=== PATIENT | female | born 1990 | race Caucasian/White ===

== ENCOUNTER 2019-01-30 14:46 | Emergency (ER) | payer OTHER, MEDICAID, SELFPAY ==
[2019-01-30 14:49] VITALS: BP 130/81; PULSE 99; RESP 20; TEMP 37; O2SAT 100; BMI 31.7
--- NOTE | 2019-01-30 15:43 | PC.NURSE ---
Pt reports hitting head on 2x4. was initially seen at [facility]. Reports pain and dizziness has been increasingly getting worse. Reports pain is left side of head and neck. states can feel behind left eye. reports only medication she has been taking is clonazepam and meclizine. states did not take clonazepam today so staff could see my symptoms Pt denies taking any medication for pain. Reports symptoms worse today causing her to come back in.
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
[2019-01-30] MEDS: LORazepam 0.5 MG TABLET 1 MG PO (16:15)
[2019-01-30] MEDS: ONDANSETRON 4 MG ODT SL (16:16)
[2019-01-30] MEDS: IBUPROFEN 400 MG TABLET 800 MG PO (16:48)
[2019-01-30 17:26] LABS: Bacteria Urine None Seen
[2019-01-30 17:28] LABS: Appearance Urine UA CLOUDY; Bilirubin Urine UA NEGATIVE (NEGATIVE); Color Urine UA YELLOW; Glucose Urine UA NEGATIVE (Negative); Ketones Urine UA NEGATIVE (NEGATIVE); Leukocyte Esterase Urine UA TRACE (NEGATIVE); Nitrite Urine UA NEGATIVE (Negative); Occult Blood Urine UA NEGATIVE (Negative); Protein Urine UA NEGATIVE (Negative); Urobilinogen Urine UA 0.2 E.U./dL (0.2); pH Urine UA 7.5 (4.5-8.0)
[2019-01-30 17:38] LABS: Amorphous Sediment Urine 2+; Culture Indicated Urine Specimen Cultured; RBC Urine 0-1/HPF (0-5/HPF); Squamous Epithelial Cell Urine None Seen (0-5/HPF); WBC Urine 5-10/HPF (0-5/HPF)
== END 2019-01-30 17:45 | disposition home or self-care (01) ==
PROVIDERS: Emergency Provider Emergency Medicine
DX: F07.81 Postconcussional syndrome (principal)
CPT/HCPCS: 70450; 81001; 87077; 87086; 87186; 99282; 99284

== ENCOUNTER 2020-02-14 21:56 | Emergency (ER) | payer OTHER, MEDICAID, SELFPAY ==
[2020-02-14 22:00] VITALS: BP 139/78; PULSE 106; RESP 16; TEMP 36.3; O2SAT 100; BMI 32.5
--- NOTE | 2020-02-14 22:12 | DI.RAD.S_ITS ---
PROCEDURE: XR WRIST LT MIN 3V INDICATIONS: fall, pain in wrist TECHNIQUE: 3 views of the wrist were acquired. COMPARISON: None. FINDINGS: Bones: There is a comminuted intra-articular fracture identified involving the distal radial metaphysis that extends into the radiocarpal joint. No additional fractures are appreciated. No suspicious osseous lesions are identified. There is no dislocation. Soft tissues: No suspicious soft tissue calcifications. IMPRESSION: Nondisplaced intra-articular distal radial fracture. Dictated by: Oliver Gruber M.D. on 02/15/2020 at 8:06 Approved by: Oliver Gruber M.D. on 02/15/2020 at 8:16
--- NOTE | 2020-02-14 22:33 | ED.UPPEXIN ---
HPI - Extremity Injury (Upper) General Chief Complaint: Extremity Injury, Upper Stated Complaint: FALL LEFT ARM INJURY Time Seen by Provider: 02/14/20 21:57 Source: patient and family Mode of arrival: Ambulatory Limitations: no limitations History of Present Illness HPI narrative: 29-year-old female daily smoker with noncontributory medical history presents with left wrist pain after a fall. She states that she was doing some pull-ups on a bar and slipped off and landed on an outstretched left wrist. She now has pain with any range of motion or palpation to her distal wrist. She has no numbness, tingling or weakness. She was seen and evaluated by paramedics and was put in a splint. MD complaint: injury to: left Other Extremity Injury: Left: wrist Other injuries: none Handedness: right Place: outdoors Severity: moderate Relieving factors: cold therapy and immobilization Exacerbating factors: movement of extremity Context: fall and direct blow Associated symptoms: denies other symptoms Related Data Home Medications Medication Instructions Recorded Confirmed meclizine 25 mg PO TID PRN 01/30/19 01/30/19 Previous Rx's Medication Instructions Recorded ondansetron HCl [Zofran] 4 mg PO QID PRN #10 tab 01/30/19 diphenhydramine HCl [Allergy 25 mg PO Q6-8H PRN #30 tab 02/14/20 (diphenhydramine)] oxycodone 5 mg PO Q4-6H PRN #20 tab 02/14/20 Allergies Allergy/AdvReac Type Severity Reaction Status Date / Time codeine Allergy Unknown Unverified 12/20/17 13:08 acetaminophen [From Vicodin] Allergy Verified 01/30/19 14:49 hydrocodone [From Vicodin] Allergy Verified 01/30/19 14:49 Review of Systems Constitutional Constitutional: Denies chills, Denies fatigue, Denies fever(s), Denies frequent falls, Denies lethargy and Denies weakness Eyes Eyes: Denies change in vision, Denies eye discharge, Denies irritation and Denies loss of vision ENT Ears, Nose, Mouth, and Throat: Denies change in voice, Denies dizziness, Denies neck pain, Denies sore throat and Denies throat swelling Cardiovascular Cardiovascular: Denies chest pain, Denies irregular heart rhythm, Denies lightheadedness, Denies palpitations, Denies dyspnea, Denies dyspnea on exertion and Denies orthopnea Respiratory Respiratory: Denies cough, Denies dyspnea, Denies dyspnea on exertion and Denies wheezing Gastrointestinal Gastrointestinal: Denies abdominal pain, Denies change in bowel habits, Denies diarrhea, Denies nausea and Denies vomiting Musculoskeletal Musculoskeletal: Reports arthralgias, Denies neck pain and Denies numbness Integumentary/Breasts Skin/Breast: Denies pruritus, Denies erythema, Denies rash and Denies wounds Neurologic Neurologic: Denies behavioral changes, Denies confusion, Denies dizziness, Denies frequent falls, Denies loss of vision, Denies numbness and Denies weakness Psychiatric Psychiatric: Denies anxiety, Denies behavioral changes, Denies confusion, Denies depression, Denies homicidal ideation and Denies suicidal ideation Endocrine Endocrine: Denies fatigue, Denies flushing and Denies palpitations Hematologic/Lymphatic Hematologic/Lymphatic: Denies easy bruising Allergic/Immunologic Allergic/Immunologic: Denies urticaria, Denies throat swelling and Denies wheezing Patient History Medical History ADHD (Chronic) Social History Smoking Status: Current every day smoker alcohol intake: current substance use type: does not use and marijuana Smoking Status: Current every day smoker alcohol intake frequency: holidays/special occasions only Substance Use Type: does not use Exam Narrative Exam Narrative: GENERAL: [29] year old patient appears stated age. Well-nourished, well-developed patient, in mild distress. HEAD: Atraumatic. Normocephalic. EYES: Pupils equal round and reactive. Extraocular motions intact. No scleral icterus. No injection or drainage. ENT: Nose without bleeding, purulent drainage. Throat without erythema, tonsillar hypertrophy or exudate. Airway patent. NECK: Trachea midline. Non tender CARDIOVASCULAR: Regular rate and rhythm without murmurs, gallops, or rubs. RESPIRATORY: Clear to auscultation. Breath sounds equal bilaterally. No wheezes, rales, or rhonchi. GASTROINTESTINAL: Abdomen soft, non-tender, nondistended. EXTREMITIES: Decreased range of motion secondary to pain of left wrist with most pain over the distal radius. Closed, isolated neurovascularly intact BACK: Nontender without deformity or crepitance. No flank tenderness. NEURO: AOx3. SKIN: No rash or erythema of visible areas Initial Vital Signs Initial Vital Signs: Vital Signs Temperature 97.4 F L 02/14/20 22:00 Pulse Rate 106 H 02/14/20 22:00 Respiratory Rate 16 02/14/20 22:00 Blood Pressure 139/78 02/14/20 22:00 Pulse Oximetry 100 02/14/20 22:00 Procedures Orthopedic Splinting/Casting Injury #1: Side: left Upper Extremity Injury Location: wrist Upper Extremity Immobilizer: sling/shoulder immobilizer and sugar tong splint Post splinting neuro exam: intact Post splinting vascular exam: intact Placed by: Nursing Course Orders Ordered: ED Orders 02/14/20 22:12 XR wrist LT min 3V Stat Vital Signs Vital signs: Vital Signs - 8 hr 02/14/20 22:00 Temperature 97.4 F L Pulse Rate 106 H Respiratory Rate 16 Blood Pressure 139/78 Pulse Oximetry 100 MDM - Extremity Injury (Upper) Imaging Data Extremity x-ray #1: Attestation: I personally reviewed and interpreted this imaging study as follows: My Impression: nondisplaced Left distal radius fracture with articular extension Discharge Plan Departure Patient Disposition: Home Clinical Impression: Fracture of wrist Qualifiers: Encounter type: initial encounter Fracture type: closed Laterality: left Qualified Code(s): S62.102A - Fracture of unspecified carpal bone, left wrist, initial encounter for closed fracture Discharge Date/Time: 02/14/20 22:53 Instructions: DI for Distal Radius Fracture Activity Restrictions/Additional Instructions: *You have been diagnosed with [acute left distal radius fracture] *What to do: *Take medications as directed *Follow up with [facility] in 2-3 days, call for an appointment. Let them know you were seen in the Emergency Department and that we ask that you be seen in follow up *Return to ER if you should have any new, worsening or concerning symptoms Prescriptions: New oxycodone 5 mg tablet 5 mg PO Q4-6H PRN (Reason: pain) Qty: 20 RF: 0 diphenhydramine HCl [Allergy (diphenhydramine)] 25 mg tablet 25 mg PO Q6-8H PRN (Reason: allergic reaction) Qty: 30 RF: 0 No Action meclizine 25 mg Tablet 25 mg PO TID PRN (Reason: Dizziness) RF: 0 ondansetron HCl [Zofran] 4 mg tablet 4 mg PO QID PRN (Reason: nausea and vomiting) Qty: 10 RF: 0 Referrals: Bairon Cervantes MD [Physician] -
[2020-02-14] MEDS: OXYCODONE/APAP 5/325 PREPACK 1 BOTTLE MISC (22:41)
[2020-02-14 22:50] VITALS: BP 123/79; PULSE 97; RESP 18; O2SAT 100
== END 2020-02-14 22:53 | disposition home or self-care (01) ==
PROVIDERS: Emergency Provider Emergency Medicine
DX: S52.502A Unspecified fracture of the lower end of left radius, initial encounter for closed fracture (principal); W17.89XA Other fall from one level to another, initial encounter; Y93.B2 Activity, push-ups, pull-ups, sit-ups
CPT/HCPCS: 29125; 73110; 99283

== ENCOUNTER → 2021-08-23 13:01 | Outpatient (CLI) | payer OTHER, MEDICAID, SELFPAY | PROVIDERS: PCP Physician Assistant Medical; Visit Provider Family Medicine | DX: Z91.89 Other specified personal risk factors, not elsewhere classified (principal) | CPT/HCPCS: 81002; 87077; 87086; 87186 ==

== ENCOUNTER 2021-09-17 01:34 | Emergency (ER) | payer OTHER, MEDICAID, SELFPAY ==
[2021-09-17 01:40] VITALS: BP 130/79; PULSE 82; RESP 18; TEMP 36.1; O2SAT 100; BMI 34.0
[2021-09-17 02:15] LABS: Appearance Urine UA CLEAR; Bilirubin Urine UA NEGATIVE (NEGATIVE); Color Urine UA YELLOW; Glucose Urine UA NEGATIVE (Negative); Ketones Urine UA NEGATIVE (NEGATIVE); Leukocyte Esterase Urine UA NEGATIVE (NEGATIVE); Nitrite Urine UA NEGATIVE (Negative); Occult Blood Urine UA TRACE-LYSED (Negative); Protein Urine UA NEGATIVE (Negative); Specific Gravity Urine UA >=1.030 (1.000-1.035); Urobilinogen Urine UA 0.2 E.U./dL (0.2); pH Urine UA 5.5 (4.5-8.0)
[2021-09-17 02:21] LABS: Bacteria Urine Few (2-10); Mucus Urine 1+ (Negative); RBC Urine 0-1/HPF (0-5/HPF); Squamous Epithelial Cell Urine 0-1 /HPF (0-5/HPF); WBC Urine None Seen (0-5/HPF)
[2021-09-17 02:22] LABS: Culture Indicated Urine Cult Not Indicated; Hyaline Casts Urine 0-1/LPF
[2021-09-17 02:24] LABS: Pregnancy Test Urine Positive (Negative)
--- NOTE | 2021-09-17 02:33 | ED_ITS ---
HPI - Back Pain/Injury General Chief Complaint: Back Pain/Injury Stated Complaint: kidney pain/infection x45 days Time Seen by Provider: 09/17/21 02:14 Source: patient History of Present Illness HPI Narrative: Patient is a 31-year-old female with history of ADHD anxiety presenting today with on going back pain is more on the right side. She says she has been di agnosed with a UTI she has been on 2 rounds of antibiotics over the last is month or more. She finished a course of antibiotics over a week ago she was doing little bit better however pain has gotten worse. More on the right than left. She has says she has been lying in bed not feeling well. She denies any fever or chills. According to records August 23 diagnosed with UTI pansensitive placed on Levaquin for 7 days. She denies any nausea or vomiting. The pain seems to be more on the upper than the lower abdomen. Related Data Home Medications Medication Instructions Recorded Confirmed clonazepam 1 mg tablet 1 mg PO DAILY 01/06/21 08/23/21 dextroamphetamine-amphetamine PO 01/06/21 08/23/21 [Adderall] Previous Rx's Medication Instructions Recorded levofloxacin 750 mg tablet 750 mg PO DAILY #7 tab 08/27/21 cephalexin 500 mg capsule 500 mg PO BID 7 Days #14 cap 09/17/21 oxycodone-acetaminophen 5 mg-325 1 tab PO Q6H PRN #10 tab 09/17/21 mg tablet (Percocet) Allergies Allergy/AdvReac Type Severity Reaction Status Date / Time codeine Allergy Unknown Verified 01/06/21 12:46 acetaminophen [From Vicodin] Allergy Verified 01/06/21 12:46 hydrocodone [From Vicodin] Allergy Verified 01/06/21 12:46 Review of Systems Review of Systems Narrative: GENERAL: Denies chills, fatigue, malaise, fever, sweats, travel HEENT: Denies sinus pain, ear pain, sore throat, difficulty swallowing, neck pain RESPIRATORY: Denies dyspnea, cough, wheezing, hemoptysis, sputum. CARDIOVASCULAR: Denies chest pain, palpitations, orthopnea, edema GASTROINTESTINAL: See HPI : Denies dysuria, frequency, incontinence, hematuria, urinary retention, flank pain. MUSCULOSKELETAL: Denies weakness, joint pain, or bony pain SKIN: No rash, no erythema, no pruritus NEUROLOGIC: Denies weakness, dizziness, headache, numbness, change in speech, confusion PSYCHIATRIC: No concerning psychosocial issues. 12 point review of systems is negative except for those stated above and HPI Patient History Medical History (Updated 09/17/21 @ 05:48 by Coby Andersen DO) ADHD Social History Smoking Status: Current every day smoker alcohol intake: current substance use type: does not use and marijuana Smoking Status: Current every day smoker alcohol intake frequency: holidays/special occasions only Substance Use Type: does not use Exam Initial Vital Signs Initial Vital Signs: Vital Signs Temperature 97 F L 09/17/21 01:40 Pulse Rate 82 09/17/21 01:40 Respiratory Rate 18 09/17/21 01:40 Blood Pressure 130/79 09/17/21 01:40 Pulse Oximetry 100 09/17/21 01:40 GENERAL: Alert 31-year-old female who appears to not feel well HEENT: Head atraumatic,EOMI, pupils reactive, face symmetric, moist mucous membranes CARDIOVASCULAR: Regular rate and rhythm without murmurs, rubs or gallops. RESPIRATORY: Breath sounds equal bilaterally, no wheezes rales or rhonchi. ABDOMEN: Soft, tender right upper quadrant positive Salazar sign : Right CVA tenderness reproducible palpation EXTREMITIES: Normal range of motion, no clubbing or edema. Neurovascularly intact NEUROLOGICAL: Alert and oriented x4. SKIN: Warm, dry, no laceration, no petechiae, no rashes or lesions. Course Orders Ordered: Discontinued Medications Hydromorphone HCl (Hydromorphone 1 Mg Inj) 1 mg IV NOW ONE Stop: 09/17/21 05:43 Last Admin: 09/17/21 05:51 Dose: 1 mg Documented by: DANE Sodium Chloride (Normal Saline 0.9%) 1,000 mls @ 1,000 mls/hr IV CONT MECHELLE Last Infusion: 09/17/21 05:22 Dose: 0 mls/hr Documented by: Admin: 09/17/21 03:27 Dose: 1,000 mls/hr Documented by: JAVIER Ceftriaxone Sodium 1,000 mg/ (Sodium Chloride) 100 mls @ 200 mls/hr IV NOW ONE Stop: 09/17/21 05:11 Last Infusion: 09/17/21 05:54 Dose: 0 mls/hr Documented by: Admin: 09/17/21 05:17 Dose: 200 mls/hr Documented by: JAVIER Lorazepam (Lorazepam 0.5 Mg Tablet) 1 mg PO NOW ONE Stop: 09/17/21 02:49 Last Admin: 09/17/21 03:26 Dose: 1 mg Documented by: JAVIER Morphine Sulfate (Morphine 4 Mg/Ml Inj) 4 mg IV NOW ONE Stop: 09/17/21 03:35 Last Admin: 09/17/21 03:41 Dose: 4 mg Documented by: DANE Vital Signs Vital signs: Vital Signs - 8 hr 09/17/21 02:00 Temperature 97 F L Pulse Rate 82 Respiratory Rate 18 Blood Pressure 130/79 Pulse Oximetry 100 MDM - Back Pain/Injury Lab Data Result diagrams: 09/17/21 03:00 09/17/21 03:00 Labs: Lab Results 09/17/21 09/17/21 09/17/21 Range/Units 02:04 02:06 03:00 WBC 8.0 (4.5-11.0) X10^3/uL RBC 4.84 (4.0-5.2) X10^6/uL Hgb 14.8 (12.0-16.0) g/dL Hct 43.1 (36-46) % MCV 89.1 (80-100) fL MCH 30.7 (26-34) PG MCHC 34.4 (30-36) % RDW 12.7 (11.6-14.8) % Plt Count 253 (150-400) X10^3/uL Neut % (Auto) 66.0 (50-75) % Lymph % (Auto) 27.0 (25-40) % [place] % (Auto) 5.2 (3-14) % Eos % (Auto) 0.9 L (2-4) % Baso % (Auto) 0.9 (0-2) % Neut # (Auto) 5300 (4898-5503) /uL Lymph # (Auto) 2200 (0364-5623) /uL [place] # (Auto) 400 (0-900) /uL Eos # (Auto) 100 (0-450) /uL Baso # (Auto) 100 (0-100) /uL Sodium (137-145) mmol/L Potassium (3.4-5.1) mmol/L Chloride (98-107) mmol/L Carbon Dioxide (22-32) mmol/L BUN (7-17) mg/dL Creatinine (0.52-1.04) mg/dL Estimated GFR (>60) mL/min BUN/Creatinine Ratio (6-22) Glucose (70-100) mg/dL Calcium (8.4-10.2) mg/dL Total Bilirubin (0.2-1.3) mg/dL AST (14-36) IU/L ALT (<35) IU/L Alkaline Phosphatase (38-126) U/L Total Protein (6.3-8.2) g/dL Albumin (3.5-5.0) g/dL Globulin (1.7-4.1) g/dL Albumin/Globulin Ratio (1.0-2.8) Lipase (23-300) U/L Urine Color Yellow Urine Appearance Clear Urine pH 5.5 (4.5-8.0) Ur Specific [place] >=1.030 H (1.000-1.035) Urine Protein Negative (Negative) Urine Glucose (UA) Negative (Negative) g/dL Urine Ketones Negative (NEGATIVE) Urine Occult Blood Trace-lysed (Negative) Urine Nitrate Negative (Negative) Urine Bilirubin Negative (NEGATIVE) Urine Urobilinogen 0.2 (0.2) E.U./dL Ur Leukocyte Esterase Negative (NEGATIVE) Urine RBC 0-1/hpf (0-5/HPF) Urine WBC None seen (0-5/HPF) Ur Squamous Epith Cells 0-1 /hpf (0-5/HPF) Urine Bacteria Few (2-10) H (None) Hyaline Casts 0-1/lpf (None) Urine Mucus 1+ H (Negative) Ur Culture Indicated? Cult not indicated Urine Test Positive H (Negative) 09/17/21 Range/Units 03:00 WBC (4.5-11.0) X10^3/uL RBC (4.0-5.2) X10^6/uL Hgb (12.0-16.0) g/dL Hct (36-46) % MCV (80-100) fL MCH (26-34) PG MCHC (30-36) % RDW (11.6-14.8) % Plt Count (150-400) X10^3/uL Neut % (Auto) (50-75) % Lymph % (Auto) (25-40) % [place] % (Auto) (3-14) % Eos % (Auto) (2-4) % Baso % (Auto) (0-2) % Neut # (Auto) (0285-3311) /uL Lymph # (Auto) (2780-3809) /uL [place] # (Auto) (0-900) /uL Eos # (Auto) (0-450) /uL Baso # (Auto) (0-100) /uL Sodium 136 L (137-145) mmol/L Potassium 4.1 (3.4-5.1) mmol/L Chloride 102 (98-107) mmol/L Carbon Dioxide 28 (22-32) mmol/L BUN 12 (7-17) mg/dL Creatinine 0.58 (0.52-1.04) mg/dL Estimated GFR > 60.0 (>60) mL/min BUN/Creatinine Ratio 20.7 (6-22) Glucose 94 (70-100) mg/dL Calcium 9.5 (8.4-10.2) mg/dL Total Bilirubin 0.4 (0.2-1.3) mg/dL AST 19 (14-36) IU/L ALT 10 (<35) IU/L Alkaline Phosphatase 47 (38-126) U/L Total Protein 7.3 (6.3-8.2) g/dL Albumin 4.2 (3.5-5.0) g/dL Globulin 3.1 (1.7-4.1) g/dL Albumin/Globulin Ratio 1.4 (1.0-2.8) Lipase 50 (23-300) U/L Urine Color Urine Appearance Urine pH (4.5-8.0) Ur Specific [place] (1.000-1.035) Urine Protein (Negative) Urine Glucose (UA) (Negative) g/dL Urine Ketones (NEGATIVE) Urine Occult Blood (Negative) Urine Nitrate (Negative) Urine Bilirubin (NEGATIVE) Urine Urobilinogen (0.2) E.U./dL Ur Leukocyte Esterase (NEGATIVE) Urine RBC (0-5/HPF) Urine WBC (0-5/HPF) Ur Squamous Epith Cells (0-5/HPF) Urine Bacteria (None) Hyaline Casts (None) Urine Mucus (Negative) Ur Culture Indicated? Urine Test (Negative) Imaging Data US - OB: Radiologist's Impression: Live IUP heart rate 162 gestational age 10 weeks 5 days. US - abdomen: Radiologist's Impression: No sonographic findings of acute cholecystitis MDM Narrative Medical decision making narrative: Patient is quite tender to touch posteriorly. Pain is better with morphine. She is quite tender in right upper quadrant however ultrasound does not show any cholelithiasis or acute cholecystitis blood work is overall reassuring. She does have a small a bacteria in her urine will put her on Keflex for 7 days. She was previously on Levaquin. At this time she does still have bacteria in her urine but no nitrates or leukocytes. She is quite tender to palpation I think it might be musculoskeletal. Ultrasound is negative. Also possible kidney stone but no blood in the urine. It has also been ongoing for number of weeks. It does get better with antibiotics. She certainly does not appear septic at this time. She is afebrile without leukocytosis and normal vitals. This is a surprise . Rh-negative is not currently bleeding. Discharge Plan Departure Patient Disposition: Home Clinical Impression: , UTI (urinary tract infection) Instructions: DI for Urinary Tract Infection (UTI), DI for -- Discomforts and Remedies Activity Restrictions/Additional Instructions: *You have been diagnosed with UTI and *What to do: At this time her pain may be related to infection although your blood work is overall reassuring. It is not your gallbladder. *Continue to take medications as directed--> SENT TO [facility] Keflex 500 mg twice a day for 7 days Percocet 1 tab every 6 hours if needed for severe pain *Follow up with your primary care provider in 2-3 days or call [phone] *Return to ER if you should have in increasing pain, fever persistent vomiting increased vaginal bleeding or any new, worsening or concerning symptoms CONTROLLED SUBSTANCE DISCHARGE (Narcotoic/benzodiazepine/Flexeril/Phenergan) 1. You have been prescribed narcotic medications, it does have acetaminophen/Tylenol/paracetamol in it, DO NOT TAKE MORE THAN 4,00mg in 24 hours of Tylenol. TRAMADOL DOES NOT CONTAIN TYLENOL 2. Please understand that we cannot provide further refills of narcotics, benzodiazepines or controlled substances through the ED and her pain management will need to be through your provider. 3. While on these medications you cannot drive or operate heavy machinery. 4. You cannot sign legal documents or perform any duties such as this. 5. As long as you're taking opiate pain medications he should also be taking a stool softener such as Colace, Dulcolax, MiraLAX or prune juice, to help avoid constipation. Prescriptions: New cephalexin 500 mg capsule 500 mg PO BID 7 Days Qty: 14 0RF oxycodone-acetaminophen [Percocet] 5-325 mg tablet 1 tab PO Q6H PRN (Reason: pain) Qty: 10 0RF No Action levofloxacin 750 mg tablet 750 mg PO DAILY Qty: 7 0RF clonazepam 1 mg tablet 1 mg PO DAILY 0RF dextroamphetamine-amphetamine PO 0RF Referrals: Yasmine Horne PA-C [Primary Care Provider] -
--- NOTE | 2021-09-17 02:48 | DI.US.S_ITS ---
PROCEDURE: US OB <= 14 WEEKS FETUS INDICATIONS: PAIN OUTSIDE/PRIOR DATING DATA: Last menstrual period (LMP): Not known LMP-based estimated date of delivery (MELA): Not applicable First dating scan (date and location): September 17, 2021 Estimated date of delivery (MELA) from first dating scan: April 10, 2022 The calculations are made using the ultrasound MELA of April 10, 2022 TECHNIQUE: Real-time scanning was performed of the fetus and maternal pelvic organs, with image documentation. Endovaginal scanning was also performed to better visualize the fetus and maternal ovaries. COMPARISON: None. FINDINGS: Embryo: Single living intrauterine identified. Yolk sac and pole are identified. [place]-rump length measures 3.8 centimeters corresponding to ultrasound estimated gestational age of 10 weeks 5 days. Heart rate: 162. Maternal organs: Ovaries not visualized and cannot be evaluated. IMPRESSION: Single living intra with ultrasound estimated gestational age of 10 weeks 5 days corresponding to ultrasound MELA of April 10, 2022. Dictated by: Jennifer Hoang MD, PhD on 09/17/2021 at 7:42 We strive to produce accurate, complete, and clear reports of imaging services. To assist us in improving patient care, this report was composed using standard report templates and voice recognition software. Therefore, it may contain abnormal punctuation, misrecognitions, insertions and/or omissions. Occasional wrong-word or sound-alike substitutions may occur. Though we review the report and make efforts to correct it, we do recommend that the report be read carefully in proper context to recognize any text inaccuracies. Approved by: Jennifer Hoang MD, PhD on 09/17/2021 at 7:44
--- NOTE | 2021-09-17 02:48 | DI.US.S_ITS ---
PROCEDURE: US ABDOMEN LIMITED INDICATIONS: RUQ PAIN TECHNIQUE: Real-time focused scanning was performed of the abdomen, with image documentation. COMPARISON: None. FINDINGS: Liver is normal in size and homogeneous echotexture. Gallbladder is sonographically normal. No gallstones. No gallbladder wall thickening. No pericholecystic fluid. No sonographic Salazar sign. Biliary tree is nondilated. Common bile duct measures 4.8 millimeters. Pancreas obscured by bowel gas and cannot be evaluated. IMPRESSION: No sonographic evidence of cholelithiasis or cholecystitis. If there is continued clinical concern for cholecystitis, a nuclear medicine HIDA scan should be considered for further evaluation. Dictated by: Jennifer Hoang MD, PhD on 09/17/2021 at 7:41 Approved by: Jennifer Hoang MD, PhD on 09/17/2021 at 7:42
[2021-09-17 03:17] LABS: Add Manual Diff / Slide Review NO; Basophils Absolute Auto 100 /uL (0-100); Basophils Percent Auto 0.9 % (0-2); Eosinophils Absolute Auto 100 /uL (0-450); Eosinophils Percent Auto 0.9 % (2-4); Hematocrit 43.1 % (36-46); Hemoglobin 14.8 g/dL (12.0-16.0); Lymphocytes Absolute Auto 2200 /uL (1100-4500); Mean Corpuscular HGB Conc 34.4 % (30-36); Mean Corpuscular Hemoglobin 30.7 PG (26-34); Mean Corpuscular Volume 89.1 fL (80-100); Monocytes Absolute Auto 400 /uL (0-900); Monocytes Percent Auto 5.2 % (3-14); Neutrophils Absolute Auto 5300 /uL (1500-7000); Platelet Count 253 X10^3/uL (150-400); Red Blood Cell Count 4.84 X10^6/uL (4.0-5.2); Red Cell Distribution Width 12.7 % (11.6-14.8)
[2021-09-17 03:22] LABS: Alanine Aminotransferase 10 IU/L (<35); Albumin 4.2 g/dL (3.5-5.0); Albumin Globulin Ratio 1.4 (1.0-2.8); Alkaline Phosphatase 47 U/L (38-126); Aspartate Aminotransferase 19 IU/L (14-36); BUN Creatinine Ratio 20.7 (6-22); Bilirubin Total 0.4 mg/dL (0.2-1.3); Blood Urea Nitrogen 12 mg/dL (7-17); Calcium 9.5 mg/dL (8.4-10.2); Carbon Dioxide 28 mmol/L (22-32); Chloride 102 mmol/L (98-107); Estimated Glomerular Filt Rate > 60.0 mL/min (>60); Globulin 3.1 g/dL (1.7-4.1); Glucose 94 mg/dL (70-100); HEMOLYSIS < 15 (0-50); Lipase 50 U/L (23-300); Potassium 4.1 mmol/L (3.4-5.1); Sodium 136 mmol/L (137-145); Total Protein 7.3 g/dL (6.3-8.2)
[2021-09-17] MEDS: LORazepam 0.5 MG TABLET 1 MG PO (03:26)
[2021-09-17] MEDS: SODIUM CHLORIDE 0.9% 1,000 ML 1000 ML IV (03:27)
[2021-09-17] MEDS: MORPHINE 4 MG/ML INJ IV (03:41)
[2021-09-17] MEDS: cefTRIAXone 1,000 MG in SODIUM CHLORIDE 0.9% 100 ML 200 ML IV (05:17)
[2021-09-17] MEDS: HYDROMORPHONE 1 MG INJ IV (05:51)
[2021-09-17 06:04] VITALS: BP 118/60; PULSE 76; RESP 18; O2SAT 98
== END 2021-09-17 06:22 | disposition home or self-care (01) ==
PROVIDERS: Emergency Provider Emergency Medicine; PCP Physician Assistant Medical
DX: O23.41 Unspecified infection of urinary tract in pregnancy, first trimester (principal); Z3A.10 10 weeks gestation of pregnancy
CPT/HCPCS: 36415; 76705; 76801; 76817; 80053; 81001; 81025; 83690; 85025; 87086; 96361; 96365; 96375; 99284; J0696; J1170; J2270

== ENCOUNTER 2022-10-23 23:49 | Emergency (ER) | payer OTHER, MEDICAID, SELFPAY ==
[2022-10-23 23:57] VITALS: PULSE 91; O2SAT 100
[2022-10-23 23:59] VITALS: BP 135/68; PULSE 92; RESP 18; TEMP 36.3; O2SAT 100; BMI 29.5
[2022-10-24] VITALS (7 sets, daily range): BP systolic 112–125; BP diastolic 61–74; PULSE 80–93; O2SAT 100
--- NOTE | 2022-10-24 00:05 | ED.GENADULT ---
HPI - General Adult General Chief complaint: Abdominal Pain Stated complaint: abdominal pain, brought stool sample with her Time Seen by Provider: 10/23/22 23:51 Source: patient Mode of arrival: Ambulatory Limitations: no limitations History of Present Illness HPI narrative: Patient is a 32-year-old female who is here for evaluation of lower abdominal pain and diarrhea. The symptoms been going on for the past couple days. No fevers. No vomiting. She states she has had urinary tract infections in the past without symptoms. She is not having any urinary symptoms today. The has no blood in her stool. She was recently on antibiotics for a dental infection but states when she took those antibiotics she had quite a bit of GI distress. She is not currently on antibiotics. That was approximately 1 week ago. No prior abdominal surgeries. Has not tried anything for the symptoms prior to arrival. Related Data Home Medications Medication Instructions Recorded Confirmed clonazepam 1 mg tablet 1 mg PO DAILY 01/06/21 08/23/21 dextroamphetamine-amphetamine PO 01/06/21 08/23/21 [Adderall] dextroamphetamine-amphetamine 30 30 mg PO DAILY 09/20/21 09/20/21 mg tablet gabapentin 100 mg capsule 100 mg PO DAILY 09/20/21 09/20/21 meloxicam 7.5 mg tablet 7.5 mg PO DAILY 09/20/21 09/20/21 omeprazole 40 mg capsule,delayed 40 mg PO DAILY 09/20/21 09/20/21 release Previous Rx's Medication Instructions Recorded levofloxacin 750 mg tablet 750 mg PO DAILY #7 tabs 08/27/21 oxycodone-acetaminophen 5 mg-325 1 tab PO Q6H PRN pain #10 tabs 09/17/21 mg tablet (Percocet) ciprofloxacin HCl 500 mg tablet 500 mg PO BID 3 days #6 tabs 10/24/22 (Cipro) vancomycin 125 mg capsule 125 mg PO QID 10 days #40 caps 10/24/22 Allergies Allergy/AdvReac Type Severity Reaction Status Date / Time codeine Allergy Unknown Verified 10/23/22 23:59 acetaminophen [From Vicodin] Allergy Verified 10/23/22 23:59 hydrocodone [From Vicodin] Allergy Verified 10/23/22 23:59 Review of Systems Constitutional Constitutional: Reports system reviewed and no additional complaints, except as documented Gastrointestinal Gastrointestinal: Reports system reviewed and no additional complaints, except as documented Genitourinary Genitourinary: Reports system reviewed and no additional complaints, except as documented Integumentary/Breasts Skin/Breast: Reports system reviewed and no additional complaints, except as documented Neurologic Neurologic: Reports system reviewed and no additional complaints, except as documented Hematologic/Lymphatic On Anticoagulants: No Patient History Medical History ADHD Social History Smoking Status: Current every day smoker alcohol intake: current substance use type: does not use and marijuana Smoking Status: Current every day smoker alcohol intake frequency: a few times a week Alcohol type: wine Substance Use Type: does not use Exam Initial Vital Signs Initial Vital Signs: Vital Signs Pulse Rate 91 H 10/23/22 23:57 Pulse Oximetry 100 10/23/22 23:57 Const General: cooperative, No ill appearing and other (Appears uncomfortable) HENMT Head: normal to inspection and normocephalic Resp Auscultation: clear to auscultation bilaterally Cardio Rate: regular rate Rhythm: regular rhythm GI Inspection: normal to inspection Palpation: soft, No firm, No guarding and tender (Lower abdomen) Back/Spine/Pelvis Back: No CVA tenderness Neuro General: patient alert, patient awake, patient oriented x3 and moves all extremities Extrem General: normal to inspection and capillary refill normal Course Orders Ordered: ED Orders 10/24/22 00:02 Complete Blood Count AUTO DIFF Stat Comprehensive Metabolic Panel Stat Lipase Stat 10/24/22 00:06 CT abdomen pelvis w con Stat 10/24/22 00:15 GI Panel (Film Array) Stat Urine Culture Stat Urine Microscopic Stat Discontinued Medications Ciprofloxacin (Ciprofloxacin 250 Mg Tablet) 500 mg PO NOW ONE Stop: 10/24/22 01:55 Clonazepam (Clonazepam 0.5 Mg Tablet) 1 mg PO NOW ONE Stop: 10/24/22 01:55 Sodium Chloride (Normal Saline 0.9%) 1,000 mls @ 1,000 mls/hr IV BOLUS ONE Stop: 10/24/22 01:04 Last Admin: 10/24/22 00:19 Dose: 1,000 mls/hr Documented By: ANDREEA Morphine Sulfate (Morphine 4 Mg/Ml Inj) 4 mg IV NOW ONE Stop: 10/24/22 00:55 Last Admin: 10/24/22 00:57 Dose: 4 mg Documented By: ANDREEA Vancomycin HCl (Vancomycin 125 Mg Capsule) 125 mg PO NOW ONE Stop: 10/24/22 01:55 Vital Signs Vital signs: Vital Signs - 8 hr 10/23/22 23:59 10/23/22 23:57 10/24/22 00:00 Temperature 97.3 F L Pulse Rate 92 H 91 H Respiratory Rate 18 Blood Pressure 135/68 121/61 Pulse Oximetry 100 100 Oxygen Delivery Method Room Air 10/24/22 00:00 10/24/22 00:23 10/24/22 00:23 Temperature Pulse Rate 90 81 Respiratory Rate Blood Pressure 125/64 Pulse Oximetry 100 100 Oxygen Delivery Method 10/24/22 00:36 10/24/22 01:00 10/24/22 01:03 Temperature Pulse Rate 80 93 H Respiratory Rate Blood Pressure 117/72 Pulse Oximetry 100 100 Oxygen Delivery Method Room Air 10/24/22 01:03 10/24/22 01:30 10/24/22 01:30 Temperature Pulse Rate 87 85 Respiratory Rate Blood Pressure 121/74 Pulse Oximetry 100 100 Oxygen Delivery Method Room Air Room Air Medical Decision Making Lab Data Lab results reviewed: Yes I reviewed the patient's lab results. 10/24/22 00:02 10/24/22 00:02 Labs: Lab Results 10/24/22 10/24/22 10/24/22 Range/Units 00:02 00:02 00:15 WBC 10.1 (4.5-11.0) X10^3/uL RBC 4.84 (4.0-5.2) X10^6/uL Hgb 14.8 (12.0-16.0) g/dL Hct 43.2 (36-46) % MCV 89.3 (80-100) fL MCH 30.6 (26-34) PG MCHC 34.2 (30-36) % RDW 13.1 (11.6-14.8) % Plt Count 229 (150-400) X10^3/uL Neut % (Auto) 73.1 (50-75) % Lymph % (Auto) 17.8 L (25-40) % [place] % (Auto) 7.9 (3-14) % Eos % (Auto) 0.8 L (2-4) % Baso % (Auto) 0.4 (0-2) % Neut # (Auto) 7400 H (9520-3020) /uL Lymph # (Auto) 1800 (7850-0573) /uL [place] # (Auto) 800 (0-900) /uL Eos # (Auto) 100 (0-450) /uL Baso # (Auto) 0 (0-100) /uL Sodium 138 (137-145) mmol/L Potassium 3.7 (3.4-5.1) mmol/L Chloride 99 (98-107) mmol/L Carbon Dioxide 33 H (22-32) mmol/L BUN 16 (7-17) mg/dL Creatinine 0.68 (0.52-1.04) mg/dL Estimated GFR > 60 (>60) mL/min BUN/Creatinine Ratio 23.5 H (6-22) Glucose 88 (70-100) mg/dL Calcium 8.5 (8.4-10.2) mg/dL Total Bilirubin 0.5 (0.2-1.3) mg/dL AST 21 (14-36) IU/L ALT 17 (<35) IU/L Alkaline Phosphatase 65 (38-126) U/L Total Protein 7.2 (6.3-8.2) g/dL Albumin 4.0 (3.5-5.0) g/dL Globulin 3.2 (1.7-4.1) g/dL Albumin/Globulin Ratio 1.3 (1.0-2.8) Lipase 32 (23-300) U/L Urine RBC (0-5/HPF) Urine WBC (0-5/HPF) Ur Squamous Epith Cells (0-5/HPF) Urine Bacteria (None) Ur Culture Indicated? Stl C. cayetanensis PCR Not detected (Not Detect) Stool Rotavirus (PCR) Not detected (Not Detect) Stool Adenovirus (PCR) Not detected (Not Detect) Stool Astrovirus (PCR) Not detected (Not Detect) Stool Cryptosporidium PCR Not detected (Not Detect) Stl E.coli Shiga Tox PCR Not detected (Not Detect) St Sh/Enteroin Ecoli PCR Not detected (Not Detect) Stool E coli O157 PCR Not Reportable Stl Enterotoxigenic E PCR Not detected (Not Detect) Stool EPEC (PCR) Detected H (Not Detect) Stl E. histolytica PCR Not detected (Not Detect) Stool Giardia Lamblia PCR Not detected (Not Detect) Stool Sapovirus (PCR) Not detected (Not Detect) Stl P. shigelloides PCR Not detected (Not Detect) St Y.enterocolitica PCR Not detected (Not Detect) Stool Vibrio (PCR) Not detected (Not Detect) Stl Vibrio cholerae PCR Not detected (Not Detect) Stl Enteroaggr Ecoli PCR Not detected (Not Detect) Stl Norovirus GI/GII PCR Not detected (Not Detect) Campylobacter (PCR) Not detected (Not Detect) C. difficile Tox (PCR) Detected H (Not Detect) Salmonella (PCR) Not detected (Not Detect) 10/24/22 Range/Units 00:15 WBC (4.5-11.0) X10^3/uL RBC (4.0-5.2) X10^6/uL Hgb (12.0-16.0) g/dL Hct (36-46) % MCV (80-100) fL MCH (26-34) PG MCHC (30-36) % RDW (11.6-14.8) % Plt Count (150-400) X10^3/uL Neut % (Auto) (50-75) % Lymph % (Auto) (25-40) % [place] % (Auto) (3-14) % Eos % (Auto) (2-4) % Baso % (Auto) (0-2) % Neut # (Auto) (2182-6405) /uL Lymph # (Auto) (4603-4837) /uL [place] # (Auto) (0-900) /uL Eos # (Auto) (0-450) /uL Baso # (Auto) (0-100) /uL Sodium (137-145) mmol/L Potassium (3.4-5.1) mmol/L Chloride (98-107) mmol/L Carbon Dioxide (22-32) mmol/L BUN (7-17) mg/dL Creatinine (0.52-1.04) mg/dL Estimated GFR (>60) mL/min BUN/Creatinine Ratio (6-22) Glucose (70-100) mg/dL Calcium (8.4-10.2) mg/dL Total Bilirubin (0.2-1.3) mg/dL AST (14-36) IU/L ALT (<35) IU/L Alkaline Phosphatase (38-126) U/L Total Protein (6.3-8.2) g/dL Albumin (3.5-5.0) g/dL Globulin (1.7-4.1) g/dL Albumin/Globulin Ratio (1.0-2.8) Lipase (23-300) U/L Urine RBC 10-30/hpf H (0-5/HPF) Urine WBC None seen (0-5/HPF) Ur Squamous Epith Cells 1-5 /hpf (0-5/HPF) Urine Bacteria Many (>30) H (None) Ur Culture Indicated? Specimen cultured Stl C. cayetanensis PCR (Not Detect) Stool Rotavirus (PCR) (Not Detect) Stool Adenovirus (PCR) (Not Detect) Stool Astrovirus (PCR) (Not Detect) Stool Cryptosporidium PCR (Not Detect) Stl E.coli Shiga Tox PCR (Not Detect) St Sh/Enteroin Ecoli PCR (Not Detect) Stool E coli O157 PCR Stl Enterotoxigenic E PCR (Not Detect) Stool EPEC (PCR) (Not Detect) Stl E. histolytica PCR (Not Detect) Stool Giardia Lamblia PCR (Not Detect) Stool Sapovirus (PCR) (Not Detect) Stl P. shigelloides PCR (Not Detect) St Y.enterocolitica PCR (Not Detect) Stool Vibrio (PCR) (Not Detect) Stl Vibrio cholerae PCR (Not Detect) Stl Enteroaggr Ecoli PCR (Not Detect) Stl Norovirus GI/GII PCR (Not Detect) Campylobacter (PCR) (Not Detect) C. difficile Tox (PCR) (Not Detect) Salmonella (PCR) (Not Detect) Point of Care Testing Test Results Negative Urine Dip Bedside Urine Glucose Negative Bedside Urine Bilirubin - Negative Bedside Urine Ketone + 15 Urine Specific Orla 1.005 Bedside Urine Occult Blood +++ Bedside Urine pH 8.5 Bedside Urine Protein + 30 Bedside Urine Urobilinogen - Negative Bedside Urine Nitrite + Positive Bedside Urine Leukocytes - Negative Esterase Point of care testing: Point of Care Testing Test Results Negative Urine Dip Bedside Urine Glucose Negative Bedside Urine Bilirubin - Negative Bedside Urine Ketone + 15 Urine Specific Orla 1.005 Bedside Urine Occult Blood +++ Bedside Urine pH 8.5 Bedside Urine Protein + 30 Bedside Urine Urobilinogen - Negative Bedside Urine Nitrite + Positive Bedside Urine Leukocytes - Negative Esterase Imaging Data CT scan - abdomen/pelvis: Radiologist's Impression: [address] [address] [address] Scan Report Signed Patient: Zhanna Tipton MR#: [id number] : 1990 Acct:[id number] Age/Sex: 32 / F Date of Service: 10/24/22 Loc: ED Accession Number: [id number] ?? Procedure: CT abdomen pelvis w con Ordering Provider: Jason Zabala D.O. PROCEDURE:? CT ABDOMEN PELVIS W CON ? INDICATIONS:? Right lower quadrant abdominal pain ? TECHNIQUE:? After the administration of intravenous contrast, axial sections acquired from the lung bases to the pubic symphysis.? Coronal and sagittal reformats were performed.? For radiation dose reduction, the following was used:? automated exposure control, adjustment of mA and/or kV according to patient size.? ? COMPARISON:? None. ? FINDINGS:? Image quality:? Excellent.? ? Lung bases:? Unremarkable. Heart:? No significant findings. ? ABDOMEN: Liver:? No masses Gallbladder:? Normal wall thickness. Biliary ducts:? Nondilated. Pancreas:? Normal. Spleen:? Normal size. Adrenal Glands:? The right adrenal gland is normal.? The left adrenal gland demonstrates a 2.3 cm circumscribed low-density nodule but with indeterminate Hounsfield units. Kidneys and Ureters:? Normal enhancement.? No hydronephrosis or hydroureter.? No calcifications. ? Stomach, Peritoneum? and Bowel:? The distal colon is in spasm.? There is mild pericolonic inflammation, mild mucosal hyperemia and wall edema from the distal descending colon through the rectum.? Of small amount fluid in the cul-de-sac is present.? No extraluminal gas or circumscribed fluid collection.? Normal appendix is present.? Small bowel is decompressed.? Stomach is normal. ? Ventral Wall: ? No hernias.? Abdominal Nodes:? No retroperitoneal or mesenteric adenopathy by size criteria.? Vessels:? Aorta and inferior vena cava are normal in size.? ? PELVIS: Pelvic Organs:? Anteverted uterus appears grossly normal.? Ovarian tissue is not well seen on noncontrast CT. Bladder:? Urinary bladder is decompressed. Pelvic Nodes: No enlarged lymph nodes.? Miscellaneous: No hernias are seen. ? ? ? Bones:? Unremarkable.? IMPRESSION:? ? 1. Findings consistent with infectious or inflammatory proctocolitis without perforation or abscess. ? 2. Normal appendix. ? 3. Indeterminate left adrenal nodule, likely an adenoma.? Recommend MR imaging of adrenals on an outpatient basis.? ? Dictated by: Tala Bunch M.D. on 10/24/2022 at 0:50 ? ? Approved by: Tala Bunch M.D. on 10/24/2022 at 0:57 MDM Narrative Medical decision making narrative: Patient's urinalysis is nitrite positive and does have other findings consistent with a urinary tract infection. She is not having specific UTI symptoms. Low suspicion for pyelo. She states she has had UTIs in the past without any specific symptoms. She did provide a stool sample for us. This was positive for enteropathogenic E coli and also Clostridium difficile. I suspect that the E coli is what is causing the urinary findings and both equal lie in the C diff is what is causing the abdominal discomfort and diarrhea. The CT scan does show proctocolitis. There was no signs of any perforations. She is no fever, no white blood cell count, no leach colitis on the CT scan and normal sodium. Patient is tolerating oral intake. Will treat with vancomycin for the Clostridium difficile. If it was just the enteropathogenic E coli we would most likely just provide supportive care to the patient however because there is some concern about a urinary tract infection associated with this we will treat her with Cipro. This will be for 3 days. The vancomycin would be for 7 days. These antibiotics were transmitted to the pharmacy of her choice. There is no indication for surgical consultation. No indication for admission to the hospital. She was given return precautions. She expressed understanding and agreement. Discharge Plan Departure Patient Disposition: Home Clinical Impression: Clostridium difficile diarrhea, UTI (urinary tract infection), Colitis due to enteropathogenic Escherichia coli Instructions: Diarrhea, Clostridioides (Clostridium) difficile Infection Activity Restrictions/Additional Instructions: I do recommend that you take the antibiotics as directed. The antibiotics were electronically transmitted to [facility]. One antibiotic will be for the next 3 days. The other antibiotic for the next 10 days. Contact your primary doctor for follow-up. Be sure that you are staying hydrated. Return to the emergency department for new symptoms. Prescriptions: New ciprofloxacin HCl [Cipro] 500 mg tablet 500 mg PO BID 3 Days Qty: 6 0RF vancomycin 125 mg capsule 125 mg PO QID 10 Days Qty: 40 0RF No Action levofloxacin 750 mg tablet 750 mg PO DAILY Qty: 7 0RF oxycodone-acetaminophen [Percocet] 5-325 mg tablet 1 tab PO Q6H PRN (Reason: pain) Qty: 10 0RF dextroamphetamine-amphetamine 30 mg tablet 30 mg PO DAILY meloxicam 7.5 mg tablet 7.5 mg PO DAILY Rx Instructions: TAKE 1-2 TABLETS (7.5- 15 MG) BY MOUTH DAILY. gabapentin 100 mg capsule 100 mg PO DAILY Rx Instructions: TAKE 1 CAPSULE (100 MG) BY MOUTH DAILY FOR 3DAYS, THEN 1 CAPSULE ( 100 MG) 2 TIMES A DAY FOR 3 DAYS, THEN 1 CAPSULE ( 100 MG ) 3 TIMES A DAY. omeprazole 40 mg capsule,delayed release(DR/EC) 40 mg PO DAILY clonazepam 1 mg tablet 1 mg PO DAILY dextroamphetamine-amphetamine PO Referrals: Yasmine Horne PA-C [Primary Care Provider] - Stand Alone Forms: Patient Portal/API
--- NOTE | 2022-10-24 00:06 | DI.CT.S_ITS ---
PROCEDURE: CT ABDOMEN PELVIS W CON INDICATIONS: Right lower quadrant abdominal pain TECHNIQUE: After the administration of intravenous contrast, axial sections acquired from the lung bases to the pubic symphysis. Coronal and sagittal reformats were performed. For radiation dose reduction, the following was used: automated exposure control, adjustment of mA and/or kV according to patient size. COMPARISON: None. FINDINGS: Image quality: Excellent. Lung bases: Unremarkable. Heart: No significant findings. ABDOMEN: Liver: No masses Gallbladder: Normal wall thickness. Biliary ducts: Nondilated. Pancreas: Normal. Spleen: Normal size. Adrenal Glands: The right adrenal gland is normal. The left adrenal gland demonstrates a 2.3 cm circumscribed low-density nodule but with indeterminate Hounsfield units. Kidneys and Ureters: Normal enhancement. No hydronephrosis or hydroureter. No calcifications. Stomach, Peritoneum and Bowel: The distal colon is in spasm. There is mild pericolonic inflammation, mild mucosal hyperemia and wall edema from the distal descending colon through the rectum. Of small amount fluid in the cul-de-sac is present. No extraluminal gas or circumscribed fluid collection. Normal appendix is present. Small bowel is decompressed. Stomach is normal. Ventral Wall: No hernias. Abdominal Nodes: No retroperitoneal or mesenteric adenopathy by size criteria. Vessels: Aorta and inferior vena cava are normal in size. PELVIS: Pelvic Organs: Anteverted uterus appears grossly normal. Ovarian tissue is not well seen on noncontrast CT. Bladder: Urinary bladder is decompressed. Pelvic Nodes: No enlarged lymph nodes. Miscellaneous: No hernias are seen. Bones: Unremarkable. IMPRESSION: 1. Findings consistent with infectious or inflammatory proctocolitis without perforation or abscess. 2. Normal appendix. 3. Indeterminate left adrenal nodule, likely an adenoma. Recommend MR imaging of adrenals on an outpatient basis. Dictated by: Tala Bunch M.D. on 10/24/2022 at 0:50 Approved by: Tala Bunch M.D. on 10/24/2022 at 0:57
[2022-10-24 00:16] LABS: Add Manual Diff / Slide Review NO; Basophils Absolute Auto 0 /uL (0-100); Basophils Percent Auto 0.4 % (0-2); Eosinophils Absolute Auto 100 /uL (0-450); Eosinophils Percent Auto 0.8 % (2-4); Hematocrit 43.2 % (36-46); Hemoglobin 14.8 g/dL (12.0-16.0); Lymphocytes Absolute Auto 1800 /uL (1100-4500); Lymphocytes Percent Auto 17.8 % (25-40); Mean Corpuscular HGB Conc 34.2 % (30-36); Mean Corpuscular Hemoglobin 30.6 PG (26-34); Mean Corpuscular Volume 89.3 fL (80-100); Monocytes Absolute Auto 800 /uL (0-900); Monocytes Percent Auto 7.9 % (3-14); Neutrophils Absolute Auto 7400 /uL (1500-7000); Neutrophils Percent Auto 73.1 % (50-75); Platelet Count 229 X10^3/uL (150-400); Red Blood Cell Count 4.84 X10^6/uL (4.0-5.2); Red Cell Distribution Width 13.1 % (11.6-14.8); White Blood Cell Count 10.1 X10^3/uL (4.5-11.0)
[2022-10-24] MEDS: SODIUM CHLORIDE 0.9% 1,000 ML 1000 ML IV (00:19)
[2022-10-24 00:26] LABS: Alanine Aminotransferase 17 IU/L (<35); Albumin Globulin Ratio 1.3 (1.0-2.8); Alkaline Phosphatase 65 U/L (38-126); Aspartate Aminotransferase 21 IU/L (14-36); BUN Creatinine Ratio 23.5 (6-22); Bilirubin Total 0.5 mg/dL (0.2-1.3); Blood Urea Nitrogen 16 mg/dL (7-17); Calcium 8.5 mg/dL (8.4-10.2); Carbon Dioxide 33 mmol/L (22-32); Chloride 99 mmol/L (98-107); Estimated Glomerular Filt Rate > 60 mL/min (>60); Globulin 3.2 g/dL (1.7-4.1); Glucose 88 mg/dL (70-100); HEMOLYSIS < 15 (0-50); Lipase 32 U/L (23-300); Potassium 3.7 mmol/L (3.4-5.1); Sodium 138 mmol/L (137-145); Total Protein 7.2 g/dL (6.3-8.2)
[2022-10-24 00:57] LABS: Bacteria Urine Many (>30); Culture Indicated Urine Specimen Cultured; RBC Urine 10-30/HPF (0-5/HPF); Squamous Epithelial Cell Urine 1-5 /HPF (0-5/HPF); WBC Urine None Seen (0-5/HPF)
[2022-10-24] MEDS: MORPHINE 4 MG/ML INJ IV (00:57)
[2022-10-24 01:46] LABS: Adenovirus F 40/41 Not Detected (Not Detect); Campylobacter Not Detected (Not Detect); Cryptosporidium Not Detected (Not Detect); Cyclospora cayetanensis Not Detected (Not Detect); Entamoeba histolytica Not Detected (Not Detect); Enteroaggregative E.coli Not Detected (Not Detect); Enterotoxigenic E.coli It/st Not Detected (Not Detect); Giardia lamblia Not Detected (Not Detect); Plesiomonsa shigelloides Not Detected (Not Detect); Salmonella Not Detected (Not Detect); Shiga-like toxin-prod E.coli Not Detected (Not Detect); Shigella/Enteroinvasive E.coli Not Detected (Not Detect); Vibrio Not Detected (Not Detect); Vibrio cholerae Not Detected (Not Detect); Yersinia enterocolitica Not Detected (Not Detect)
[2022-10-24 01:47] LABS: Astrovirus Not Detected (Not Detect); Clostridium difficile toxin AB Detected (Not Detect); Norovirus GI/GII Not Detected (Not Detect); Rotavirus A Not Detected (Not Detect); Sapovirus Not Detected (Not Detect)
[2022-10-24 01:48] LABS: Enteropathogenic E.coli Detected (Not Detect)
[2022-10-24] MEDS: CIPROFLOXACIN 250 MG TABLET 500 MG PO (02:14)
[2022-10-24] MEDS: VANCOMYCIN 125 MG CAPSULE PO (02:14)
[2022-10-24] MEDS: clonazePAM 0.5 MG TABLET 1 MG PO (02:14)
[2022-10-26 11:38] LABS: C difficie Toxins A and B, EIA Positive (Negative)
== END 2022-10-24 02:21 | disposition home or self-care (01) ==
PROVIDERS: Emergency Provider Emergency Medicine; PCP Physician Assistant Medical
DX: A04.72 Enterocolitis due to Clostridium difficile, not specified as recurrent (principal); N39.0 Urinary tract infection, site not specified; A04.0 Enteropathogenic Escherichia coli infection
CPT/HCPCS: 36415; 74177; 80053; 81003; 81015; 81025; 83690; 85025; 87077; 87086; 87186; 87324; 87507; 96361; 96374; 99284; J2270; Q9967

== ENCOUNTER 2022-10-24 20:20 | Emergency (ER) | payer OTHER, MEDICAID, SELFPAY ==
[2022-10-24 20:24] VITALS: BP 141/81; PULSE 100; RESP 20; TEMP 35.6; O2SAT 100; BMI 29.5
--- NOTE | 2022-10-24 20:34 | DI.RAD.S_ITS ---
PROCEDURE: XR ABDOMEN 1V INDICATIONS: abd pain TECHNIQUE: One view of the abdomen acquired. COMPARISON: None. FINDINGS: Surgical changes and devices: None. Bowel: Bowel gas pattern is normal. Mildly increased quantity of solid proximal colon stool. Soft tissues: No suspicious abdominal calcifications. Visualized solid organ contours appear normal in size. Bones: No suspicious bony lesions. IMPRESSION: Mild proximal colon obstipation. Dictated by: Tala Bunch M.D. on 10/24/2022 at 21:11 Approved by: Tala Bunch M.D. on 10/24/2022 at 21:12
[2022-10-24] MEDS: SODIUM CHLORIDE 0.9% 1,000 ML 1000 ML IV (20:56)
[2022-10-24 21:00] VITALS: BP 119/69; PULSE 87; RESP 18; O2SAT 99
[2022-10-24 21:04] LABS: Add Manual Diff / Slide Review NO; Basophils Absolute Auto 100 /uL (0-100); Basophils Percent Auto 0.6 % (0-2); Eosinophils Absolute Auto 100 /uL (0-450); Eosinophils Percent Auto 0.7 % (2-4); Hematocrit 43.1 % (36-46); Hemoglobin 14.7 g/dL (12.0-16.0); Lymphocytes Absolute Auto 1300 /uL (1100-4500); Mean Corpuscular HGB Conc 34.2 % (30-36); Mean Corpuscular Hemoglobin 30.4 PG (26-34); Mean Corpuscular Volume 88.8 fL (80-100); Monocytes Absolute Auto 800 /uL (0-900); Monocytes Percent Auto 7.9 % (3-14); Neutrophils Absolute Auto 8400 /uL (1500-7000); Neutrophils Percent Auto 78.8 % (50-75); Platelet Count 225 X10^3/uL (150-400); Red Blood Cell Count 4.85 X10^6/uL (4.0-5.2); Red Cell Distribution Width 13.5 % (11.6-14.8); White Blood Cell Count 10.7 X10^3/uL (4.5-11.0)
[2022-10-24 21:06] VITALS: PULSE 89; O2SAT 100
[2022-10-24 21:15] LABS: Alanine Aminotransferase 18 IU/L (<35); Albumin 4.1 g/dL (3.5-5.0); Albumin Globulin Ratio 1.3 (1.0-2.8); Alkaline Phosphatase 67 U/L (38-126); Aspartate Aminotransferase 21 IU/L (14-36); BUN Creatinine Ratio 21.9 (6-22); Bilirubin Total 0.6 mg/dL (0.2-1.3); Blood Urea Nitrogen 16 mg/dL (7-17); Calcium 8.7 mg/dL (8.4-10.2); Carbon Dioxide 30 mmol/L (22-32); Chloride 100 mmol/L (98-107); Estimated Glomerular Filt Rate > 60 mL/min (>60); Globulin 3.2 g/dL (1.7-4.1); Glucose 88 mg/dL (70-100); HEMOLYSIS < 15 (0-50); Lipase 32 U/L (23-300); Potassium 3.9 mmol/L (3.4-5.1); Sodium 136 mmol/L (137-145); Total Protein 7.3 g/dL (6.3-8.2)
[2022-10-24 21:30] VITALS: BP 126/76; PULSE 84; O2SAT 100
--- NOTE | 2022-10-24 21:31 | ED_ITS ---
HPI - General Adult General Chief complaint: Abdominal Pain Stated complaint: Er visit 10/23 abd. pain Time Seen by Provider: 10/24/22 20:33 Source: patient Mode of arrival: Ambulatory Limitations: no limitations History of Present Illness HPI narrative: Patient is a 32-year-old female who I evaluated in the emergency department yesterday. Was sent home with a diagnosis of enteropathic jerky coli and also Clostridium difficile. She was also diagnosed with a urinary tract infection. Patient has picked up her antibiotics and has taken a full day's worth these antibiotics. She is here because she continues to have discomfort. She is still having diarrhea. No vomiting. She is tolerating the antibiotics okay. No fevers. No specific urinary symptoms. Related Data Home Medications Medication Instructions Recorded Confirmed clonazepam 1 mg tablet 1 mg PO DAILY 01/06/21 08/23/21 dextroamphetamine-amphetamine PO 01/06/21 08/23/21 [Adderall] dextroamphetamine-amphetamine 30 30 mg PO DAILY 09/20/21 09/20/21 mg tablet gabapentin 100 mg capsule 100 mg PO DAILY 09/20/21 09/20/21 meloxicam 7.5 mg tablet 7.5 mg PO DAILY 09/20/21 09/20/21 omeprazole 40 mg capsule,delayed 40 mg PO DAILY 09/20/21 09/20/21 release Previous Rx's Medication Instructions Recorded levofloxacin 750 mg tablet 750 mg PO DAILY #7 tabs 08/27/21 oxycodone-acetaminophen 5 mg-325 1 tab PO Q6H PRN pain #10 tabs 09/17/21 mg tablet (Percocet) ciprofloxacin HCl 500 mg tablet 500 mg PO BID 3 days #6 tabs 10/24/22 (Cipro) ondansetron 4 mg disintegrating 4 mg PO Q6H PRN nausea and 10/24/22 tablet vomiting #10 tabs oxycodone-acetaminophen 5 mg-325 1 tab PO Q8H PRN pain #7 tabs 10/24/22 mg tablet (Percocet) vancomycin 125 mg capsule 125 mg PO QID 10 days #40 caps 10/24/22 Allergies Allergy/AdvReac Type Severity Reaction Status Date / Time codeine Allergy Unknown Verified 10/23/22 23:59 acetaminophen [From Vicodin] Allergy Verified 10/23/22 23:59 hydrocodone [From Vicodin] Allergy Verified 10/23/22 23:59 Review of Systems Constitutional Constitutional: Reports system reviewed and no additional complaints, except as documented Gastrointestinal Gastrointestinal: Reports system reviewed and no additional complaints, except as documented Genitourinary Genitourinary: Reports system reviewed and no additional complaints, except as documented Integumentary/Breasts Skin/Breast: Reports system reviewed and no additional complaints, except as documented Neurologic Neurologic: Reports system reviewed and no additional complaints, except as documented Hematologic/Lymphatic On Anticoagulants: No Patient History Medical History ADHD Social History Smoking Status: Current every day smoker alcohol intake: current substance use type: does not use and marijuana Smoking Status: Current every day smoker alcohol intake frequency: a few times a week Alcohol type: wine Substance Use Type: does not use Exam Initial Vital Signs Initial Vital Signs: Vital Signs Temperature 96.1 F L 10/24/22 20:24 Pulse Rate 100 H 10/24/22 20:24 Respiratory Rate 20 10/24/22 20:24 Blood Pressure 141/81 H 10/24/22 20:24 Pulse Oximetry 100 10/24/22 20:24 Oxygen Delivery Method 10/24/22 20:24 Resp Effort & Inspection: normal respiratory effort Auscultation: clear to auscultation bilaterally Cardio Rate: regular rate GI Inspection: non-distended Neuro General: patient alert, patient awake and moves all extremities Extrem General: normal to inspection and capillary refill normal Course Orders Ordered: ED Orders 10/24/22 20:34 XR abdomen 1V Stat 10/24/22 20:50 Complete Blood Count AUTO DIFF Stat Comprehensive Metabolic Panel Stat Lipase Stat Discontinued Medications Clonazepam (Clonazepam 0.5 Mg Tablet) 1 mg PO NOW ONE Stop: 10/24/22 22:04 Last Admin: 10/24/22 22:07 Dose: 1 mg Documented By: AT Sodium Chloride (Normal Saline 0.9%) 1,000 mls @ 1,000 mls/hr IV BOLUS ONE Stop: 10/24/22 21:33 Last Infusion: 10/24/22 21:55 Dose: 0 mls/hr Documented By: Admin: 10/24/22 20:56 Dose: 1,000 mls/hr Documented By: AT Morphine Sulfate (Morphine 4 Mg/Ml Inj) 4 mg IV NOW ONE Stop: 10/24/22 21:42 Last Admin: 10/24/22 21:50 Dose: 4 mg Documented By: AT Ondansetron HCl (Ondansetron 4 Mg/2 Ml Inj) 4 mg IV NOW ONE Stop: 10/24/22 21:42 Last Admin: 10/24/22 21:50 Dose: 4 mg Documented By: AT Ondansetron HCl (Ondansetron 4 Mg Odt Prepack) 1 bottle MISC SEEINSTR ONE Stop: 10/24/22 22:14 Last Admin: 10/24/22 22:26 Dose: 1 bottle Documented By: BS Oxycodone/Acetaminophen (Oxycodone/Apap 5/325 Prepack) 1 bottle MISC SEEINSTR ONE Stop: 10/24/22 22:14 Last Admin: 10/24/22 22:26 Dose: 1 bottle Documented By: KLAUDIA Vital Signs Vital signs: Vital Signs - 8 hr 10/24/22 21:00 10/24/22 21:06 10/24/22 21:30 Temperature Pulse Rate 87 89 Respiratory Rate 18 Blood Pressure 119/69 126/76 Pulse Oximetry 99 100 Oxygen Delivery Method Room Air Room Air 10/24/22 21:30 10/24/22 22:00 10/24/22 22:00 Temperature Pulse Rate 84 91 H Respiratory Rate Blood Pressure 129/77 Pulse Oximetry 100 98 Oxygen Delivery Method Room Air Room Air 10/24/22 22:30 Temperature 97.6 F Pulse Rate 85 Respiratory Rate 16 Blood Pressure 125/77 Pulse Oximetry 100 Oxygen Delivery Method Room Air Medical Decision Making Medical Records Medical records reviewed: Yes I reviewed the patient's medical records. Lab Data Lab results reviewed: Yes I reviewed the patient's lab results. 10/24/22 20:50 10/24/22 20:50 Labs: Lab Results 10/24/22 10/24/22 Range/Units 20:50 20:50 WBC 10.7 (4.5-11.0) X10^3/uL RBC 4.85 (4.0-5.2) X10^6/uL Hgb 14.7 (12.0-16.0) g/dL Hct 43.1 (36-46) % MCV 88.8 (80-100) fL MCH 30.4 (26-34) PG MCHC 34.2 (30-36) % RDW 13.5 (11.6-14.8) % Plt Count 225 (150-400) X10^3/uL Neut % (Auto) 78.8 H (50-75) % Lymph % (Auto) 12.0 L (25-40) % Bullock % (Auto) 7.9 (3-14) % Eos % (Auto) 0.7 L (2-4) % Baso % (Auto) 0.6 (0-2) % Neut # (Auto) 8400 H (2078-0581) /uL Lymph # (Auto) 1300 (3038-1499) /uL Bullock # (Auto) 800 (0-900) /uL Eos # (Auto) 100 (0-450) /uL Baso # (Auto) 100 (0-100) /uL Sodium 136 L (137-145) mmol/L Potassium 3.9 (3.4-5.1) mmol/L Chloride 100 (98-107) mmol/L Carbon Dioxide 30 (22-32) mmol/L BUN 16 (7-17) mg/dL Creatinine 0.73 (0.52-1.04) mg/dL Estimated GFR > 60 (>60) mL/min BUN/Creatinine Ratio 21.9 (6-22) Glucose 88 (70-100) mg/dL Calcium 8.7 (8.4-10.2) mg/dL Total Bilirubin 0.6 (0.2-1.3) mg/dL AST 21 (14-36) IU/L ALT 18 (<35) IU/L Alkaline Phosphatase 67 (38-126) U/L Total Protein 7.3 (6.3-8.2) g/dL Albumin 4.1 (3.5-5.0) g/dL Globulin 3.2 (1.7-4.1) g/dL Albumin/Globulin Ratio 1.3 (1.0-2.8) Lipase 32 (23-300) U/L Imaging Data Abdominal x-ray: Radiologist's Impression: [address] [address] XRay Report Signed Patient: Zhanna Tipton MR#: [id number] : 1990 Acct:[id number] Age/Sex: 32 / F Date of Service: 10/24/22 Loc: ED Accession Number: [id number] ?? Procedure: XR abdomen 1V Ordering Provider: Jason Zabala D.O. PROCEDURE:? XR ABDOMEN 1V ? INDICATIONS:? abd pain ? TECHNIQUE:? One view of the abdomen acquired.? ? COMPARISON:? None. ? FINDINGS:? ? Surgical changes and devices:? None.? ? Bowel:? Bowel gas pattern is normal.? Mildly increased quantity of solid proximal colon stool. ? Soft tissues:? No suspicious abdominal calcifications.? Visualized solid organ contours appear normal in size.? ? Bones:? No suspicious bony lesions.? ? IMPRESSION:? Mild proximal colon obstipation. ? ? Dictated by: Tala Bunch M.D. on 10/24/2022 at 21:11 ? ? Approved by: Tala Bunch M.D. on 10/24/2022 at 21:12?? MDM Narrative Medical decision making narrative: Patient is not tachycardic. X-ray does not show any signs of bowel dilation that would be concerning for toxic megacolon. She is tolerating the appropriate antibiotics for the infections that she has. Her labs today are unremarkable showing no leukocytosis and a normal sodium. I feel that we can hold on repeat CT scan today since she just had a CT scan yesterday. Patient is tolerating oral intake. Will provide nausea medication and pain medication although she was informed that what is going to help her symptoms the most is the antibiotics. Patient is staying hydrated. Will discharge patient home with return precautions. She expressed understanding and agreement. Discharge Plan Departure Patient Disposition: Home Clinical Impression: Clostridium difficile diarrhea, Colitis due to enteropathogenic Escherichia coli, Abdominal pain Instructions: DI for Antibiotic -- associated Colitis -- C difficile Activity Restrictions/Additional Instructions: It is important that you stay hydrated. It is also important that you continue to take the antibiotics as directed. Prescriptions for nausea medication and pain medicine for sent to the [facility] here in [place] per your request. I do recommend you follow-up with your primary doctor. Return to the emergency department for new symptoms. Prescriptions: New ondansetron 4 mg tablet,disintegrating 4 mg PO Q6H PRN (Reason: nausea and vomiting) Qty: 10 0RF oxycodone-acetaminophen [Percocet] 5-325 mg tablet 1 tab PO Q8H PRN (Reason: pain) Qty: 7 0RF No Action levofloxacin 750 mg tablet 750 mg PO DAILY Qty: 7 0RF oxycodone-acetaminophen [Percocet] 5-325 mg tablet 1 tab PO Q6H PRN (Reason: pain) Qty: 10 0RF ciprofloxacin HCl [Cipro] 500 mg tablet 500 mg PO BID 3 Days Qty: 6 0RF vancomycin 125 mg capsule 125 mg PO QID 10 Days Qty: 40 0RF dextroamphetamine-amphetamine 30 mg tablet 30 mg PO DAILY meloxicam 7.5 mg tablet 7.5 mg PO DAILY Rx Instructions: TAKE 1-2 TABLETS (7.5- 15 MG) BY MOUTH DAILY. gabapentin 100 mg capsule 100 mg PO DAILY Rx Instructions: TAKE 1 CAPSULE (100 MG) BY MOUTH DAILY FOR 3DAYS, THEN 1 CAPSULE ( 100 MG) 2 TIMES A DAY FOR 3 DAYS, THEN 1 CAPSULE ( 100 MG ) 3 TIMES A DAY. omeprazole 40 mg capsule,delayed release(DR/EC) 40 mg PO DAILY clonazepam 1 mg tablet 1 mg PO DAILY dextroamphetamine-amphetamine PO Stand Alone Forms: Patient Portal/API
[2022-10-24] MEDS: MORPHINE 4 MG/ML INJ IV (21:50)
[2022-10-24] MEDS: ONDANSETRON 4 MG/2 ML INJ IV (21:50)
[2022-10-24 22:00] VITALS: BP 129/77; PULSE 91; O2SAT 98
--- NOTE | 2022-10-24 22:01 | PC.NURSE ---
[place], therefore was not able to take her prescribed clonazepam 1mg, Dr. Zabala notified.
[2022-10-24] MEDS: clonazePAM 0.5 MG TABLET 1 MG PO (22:07)
[2022-10-24] MEDS: ONDANSETRON 4 MG ODT PREPACK 1 BOTTLE MISC (22:26)
[2022-10-24] MEDS: OXYCODONE/APAP 5/325 PREPACK 1 BOTTLE MISC (22:26)
[2022-10-24 22:30] VITALS: BP 125/77; PULSE 85; RESP 16; TEMP 36.4; O2SAT 100
== END 2022-10-24 22:36 | disposition home or self-care (01) ==
PROVIDERS: Emergency Provider Emergency Medicine
DX: A04.72 Enterocolitis due to Clostridium difficile, not specified as recurrent (principal); A04.0 Enteropathogenic Escherichia coli infection; R10.9 Unspecified abdominal pain
CPT/HCPCS: 36415; 74018; 80053; 83690; 85025; 96361; 96374; 96375; 99284; J2270; J2405